=== PATIENT | male | born 1950 | race Caucasian/White ===

== ENCOUNTER → 2025-04-03 15:02 | Outpatient (REF) | payer OTHER, SELFPAY | LOC: MRI 3T 15:02 | PROVIDERS: ATTENDING PHYSICIAN Orthopaedic Surgery Hand Surgery; FAMILY PHYSICIAN Family Medicine | DX: M75.41 Impingement syndrome of right shoulder (principal) | CPT/HCPCS: 73221 ==

== ENCOUNTER 2025-04-29 21:25 | Observation (INO) | payer OTHER, SELFPAY ==
[2025-04-29 16:58] VITALS: BP 125/71
[2025-04-29 19:20] VITALS: BP 141/85
[2025-04-29 20:35] VITALS: BP 121/77
--- NOTE | 2025-04-29 20:48 | ED.GENMED ---
History of Present Illness
General
Chief Complaint: Fall
Source: patient and family
Exam Limitations: none
Time Seen by Provider: 04/29/25 17:11
History of Present Illness
History of Present Illness:
Note:
CHIEF COMPLAINT(S)
Right leg and elbow pain following a fall.
HISTORY OF PRESENT ILLNESS
The patient is a 74-year-old male who presents with pain in the right leg and elbow following a fall earlier today. The patient reports tripping and falling, landing on the leg and elbow. The fall was significant enough to cause pain through two
layers of clothing but did not lead to head impact. The patient describes the elbow pain as similar to a 'bad brush burn.' The patient took 'Re-out Re-I bill' for pain, although the exact medication is unclear, and the patient was advised against
taking it due to his current prescriptions. The patient noted that his existing rotator cuff injury from June 12 is not exacerbated by this fall. He denies any pain elsewhere, including the chest or other extremities. The patients tetanus
immunization is reportedly up to date, having been administered within the last couple of years.
PAST MEDICAL AND SURGICAL HISTORY
The patient has a history of atrial fibrillation for which he was previously hospitalized. He underwent cardioversion and was considered for ablation, but instead was treated with Dofetilide. He states the medication has been effective for at least
five years without recurrence.
MEDICATIONS
The patient is currently taking Apixaban (Eliquis) for atrial fibrillation. He also takes Dofetilide.
PHYSICAL EXAM
General: Alert, no acute distress.
Skin: Warm, dry.
Head: Normocephalic, atraumatic.
Neck: Supple, trachea midline.
Eye Ears, nose, mouth and throat: Oral mucosa moist.
Cardiovascular: Normal peripheral perfusion, no edema.
Respiratory: Respirations are non-labored.
Gastrointestinal: Abdomen nondistended.
Back: Normal range of motion, normal alignment.
Musculoskeletal: Normal range of motion, normal strength. Right elbow exhibits tenderness consistent with superficial abrasion-like injury.
Neurological: Alert and oriented to person, place, time, and situation, no focal neurological deficit observed.
Psychiatric: Cooperative, appropriate mood & affect.
PLAN
- Obtain an X-ray of the right leg to evaluate for any fractures.
- Provide local wound care for the right elbow abrasion.
- Discuss safer pain management options that do not interfere with current medications.
- Reassure the patient regarding the up-to-date status of his vaccinations.
DIFFERENTIAL DIAGNOSIS
The Differential Diagnosis includes, in no particular order and is not limited to:
1. Contusion
2. Abrasion
3. Fracture
4. Hemarthrosis
5. Ligamentous injury
6. Tendon injury
7. Osteoarthritis exacerbation
8. Deep vein thrombosis
9. Muscle strain
10. Soft tissue infection
Disposition:
SUMMARY OF ENCOUNTER
The patient is a 74-year-old male presenting with right hip pain after a fall. Initial x-rays were obtained and interpreted by both myself and the radiology department, revealing no fractures. Given the patients inability to ambulate and concerns
about his home environment consisting of multiple steps, a CT scan of the abdomen and pelvis was performed and also read as negative. Due to the patients living situation and the potential risk of further falls, the decision was made to admit the
patient for further evaluation and physical therapy consultation.
DISPOSITION
Admit
ASSESSMENT
The patient has sustained a fall causing right hip pain but with no radiographic evidence of fracture. Concerns about mobility in the context of his living situation necessitate further inpatient evaluation and management.
INDEPENDENT REVIEW OF LABS AND INTERPRETATION OF TESTS
- My independent interpretation of the right hip x-ray is negative for fractures.
- My independent interpretation of the CT scan of the abdomen and pelvis is negative for acute pathology.
MEDICAL DECISION MAKING
- Number and Complexity of Problems Addressed: Chronic conditions affecting care include a history of atrial fibrillation under current management, which needs to be considered in coordination with patient mobility and fall risk.
- Data:
- Category 1: X-rays and CT scan of the abdomen and pelvis were obtained and independently reviewed.
- Category 3: Consideration of Admission/Observation: Escalation of care, including admission/observation, was considered given the complexity and risk of the patients presenting complaint, exam findings, and/or underlying comorbidities. Ultimately,
I admitted the patient for further evaluation of his mobility and safety within his tri-level home environment, additionally reinforced by family concerns regarding potential fall risks.
DIAGNOSIS
- Pain in the right hip following a fall, with no fracture detected (ICD-10: M25.551)
- History of atrial fibrillation (ICD-10: I48.91)
Phy Exam
Physical Exam
Physical Exam:
.
Course
Orders/Labs/Results
Orders:
Orders
04/29/25 17:35
Lumbar Spine Complete, 4 View [CR Lumbar Spine Comp Min 4 Vw*] Urgent
Comment:
Reason For Exam: fall
04/29/25 17:36
CR Hip - RT w/wo Pel 2-3 Vw* Urgent
Comment:
Reason For Exam: fall, non ambulatory
Include a pelvis x-ray?: Yes
04/29/25 19:43
CT Abd/pelvis Wo Iv Cont Urgent
Comment:
Reason For Exam: r hip pain, minimally ambulatory
04/29/25 20:49
PT Consult [Pt Eval And Treat] Urgent
Activity Level: Out of Bed-Early Mobility
04/29/25 21:10
Admit/Transfer Patient As Directed
Co-Sign Provider:
Level of Care: Observation services
Assign to:: Medical/Surgical
Physician / Group: la nenay
Diagnosis: Rt Hi pain , acute gait dysfunction
04/29/25 21:11
Code Status As Directed
Resuscitation Status: Full Code
Vital Signs
Initial and Last Documented VS:
Initial Vital Signs
Temp Pulse Resp BP Pulse Ox
97.9 F 64 18 125/71 95
04/29/25 16:58 04/29/25 16:58 04/29/25 16:58 04/29/25 16:58 04/29/25 16:58
Last Documented Vital Signs
Temp Pulse Resp BP Pulse Ox
97.9 F 59 18 121/77 93
04/29/25 16:58 04/29/25 20:36 04/29/25 20:36 04/29/25 20:35 04/29/25 20:49
*Radiology
Radiology exam reviewed: radiology read reviewed and all reviewed NAD by ED Provider
*Pulse Oximetry
SaO2: 93
Oxygen Mode of Delivery: Room air
Patient hypoxic: no
*Critical Care Note
Total Time (30-74mins, 75-104mins- exclusive of procedures): Not Applicable
Update Note
Update Note:
EKG shows sinus rhythm rate of 66 with PACs present. No evidence of acute ischemia.
ED Attending Note
-
Portions of this chart may have been created with voice recognition software.� Occasional wrong word or��sound alike� substitutions may have occurred due to the inherent limitations of voice recognition software.
Discharge Plan
Departure
Patient Disposition: Admit
Date of Disposition: 04/29/25
Time of Disposition: 20:48
Admit to: Med/Surg
Presentation/result/management discussed w/ accepting MD/DO: Hospitalist
Condition: Good
Discharge Problem:
Acute hip injury
Interventions
Interventions:
*Risk Screen - Suicide Last Done: 04/29/25 17:01
*General Assessment Last Done: 04/29/25 17:01
*Neglect/Abuse Screening Last Done: 04/29/25 17:01
*ED COVID-19 Vaccine History Last Done: 04/29/25 17:01
*ED Influenza Vaccine History Last Done: 04/29/25 17:01
[facility] Risk Assessment Tool Last Done: 04/29/25 19:04
ED-Musculoskeletal Assessment Last Done: 04/29/25 17:13
ED- Neurological Assessment Last Done: 04/29/25 17:13
ED-Skin Assessment Last Done: 04/29/25 17:13
--- NOTE | 2025-04-29 20:53 | HPS.HSE ---
Family Physician
-
Family Physician: NOT KNOW UNKNOWN - PT DOES
Chief Complaint
-
pain in the right leg and elbow following a fall earlier today.
History of Present Illness
HPI
74M seen at ER
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
- tripping and falling, landing on the leg and elbow
- denied head strike
- elbow with bad brush burn.
- The patient took 'Re-out Re-I bill' for pain - the exact medication is unclear, and the patient was advised against taking it due to his current prescriptions.
- HX existing rotator cuff injury from June 12 is not exacerbated by this fall.
- Denies any pain elsewhere, including the chest or other extremities.
PMHX
DMT2
pHTN
HX Prx AF on Dofetilide & at least five years without recurrence.
HX CV
Medical History
Past Medical History
Past Medical History: Reports Arrhythmia (HX Prx AF on Dofetilide & at least five years without recurrence. HX CV ), HTN, NIDDM and Other
Past Surgical History: Reports Other
Social History
Tobacco: Non-smoker
Family History
Family History: Not pertinent
Allergies / Home Medications
Allergies reflects when Allergies were last updated in [employer].
Home Medications with original date entered in [employer]
Allergy/Medication List:
Allergies
Allergy/AdvReac Type Severity Reaction Status Date / Time
No Known Allergies Allergy Unverified 04/29/25 16:59
If medication reconciliation has not been performed, why?: Medication List N/A (Pending Rx reconciliation)
Review of Systems
-
Constitutional: Reports No Symptoms
EENT: Reports No Symptoms
Respiratory: Reports No Symptoms
Cardiac: Reports No Symptoms
Abdomen/GI: Reports No Symptoms
: Reports No Symptoms
Musculoskeletal: Reports See HPI
Skin: Reports No Symptoms
Neurological: Reports No Symptoms
Endocrine: Reports No Symptoms
Hematologic/Lymphatic: Reports No Symptoms
Psych: Reports No Symptoms
Physical Exam
Vital Signs
Vital Signs
Temp Pulse Resp BP Pulse Ox
97.9 F 59 18 141/85 93
04/29/25 16:58 04/29/25 20:36 04/29/25 20:36 04/29/25 19:20 04/29/25 20:49
Physical Exam
General: No Apparent Distress
HEENT: NormoCephalic, Atraumatic and Neck Nontender
Respiratory: Clear
Cardiac: S1/S2 and Regular Rhythm
GI: Soft, Non Tender and Non Distended
Genito-urinary: Deferred by me
Musculoskeletal: Other (Rt Hip - able to fully flexed and externa rotation without tenderness at Hip Joint )
Skin: Other (Right elbow: tenderness consistent with superficial abrasion-like injury.)
Neuro: AO x 3
Psych: Calm
Laboratory Results
-
pending
Data Reviewed
-
Diagnostic Radiology: Report Reviewed by me
CT Scan: Report Reviewed by me
Impression/Plan
-
Relevant Data
Pending Labs upon admission ( CBC, INR, CMP)
CR Lumbar Spine Comp Min 4 Vw*, CR Hip - RT w/wo Pel 2-3 Vw*
- Mild to moderate multilevel degenerative changes of the lumbar spine and right hip without evidence for acute fracture.
CT AP Wo Iv Cont
- No convincing acute process in the abdomen or pelvis.
- Intact right hip.
- Indeterminate 3.4 cm left hepatic lobe lesion.( Recommend outpatient workup with dedicated MRI abdomen without and with gadolinium contras)
- Small indeterminate upper pole left renal lesion.( Recommend attention on follow-up MRI)
No prior hospitalist admission:
ASSESSMENT & PLAN
Pending Rx reconciliation
R Hip pain suspect muscle contusion ? hematoma
s/p mechanical fall - denied head strike
Rt Hip - FROM
No evidence of acute Fx b y XR and CT
Associated with acute gait dysfunction
- PT/OT
- CRM evaluation
- Home with PT vs SNF
HX Prx AF on Dofetilide & at least five years without recurrence.
HX CV
Known HX
HX Prx AF: on ROOM WORKER Eliquis 5mg BID, Dofetilide
DMT2 : Hold Metformin due to contrast study, Jardiance is not on formula
pHTN: c/w ROOM WORKER Amlodipine 10mg daily, Losartan 50 or 100 mfg daily, Metoprolol 12.5 mg BID
- he missed evening Med - Thus NOW order placed for Metoprolol, Dofetilide, Eliquis
DVT PX : on chr Eliquis
Full Code:
OBS MS
[2025-04-29] MEDS: LOPRESSOR 12.5 MG PO (22:12)
[2025-04-29] MEDS: ELIQUIS 5 MG PO (22:12)
[2025-04-29] MEDS: TIKOSYN 250 MCG PO (22:15)
[2025-04-29 22:26] LABS: Hematocrit 48.6 % (39.0-52.0); Hemoglobin 16.6 g/dL (13.0-18.0); Mean Corp Hgb Conc. 34.2 g/dL (33.0-37.0); Mean Corpuscular Volume 93.1 fL (80.0-94.0); Platelet Count 169 10^3/uL (130-400); Red Cell Dist. Width 12.9 % (11.5-14.5)
[2025-04-29 22:37] LABS: INR 1.04; PT 13.7 Sec (11.4-14.6)
--- NOTE | 2025-04-29 22:45 | PTCARENOTE ---
pt arrived to 2S @ 2345 from ED. Pt ambulated to the bed with a one person assist. Pt A&Ox3, VSS. Admission assessment complete. Reviewed plan of care with patient, all questions answered. Pt oriented to room, call lafonso within reach, bed locked in
lowest position, care ongoing.
[2025-04-29 22:58] LABS: ALT (SGPT) 18 U/L (0-50); AST (SGOT) 24 U/L (17-59); Albumin 4.2 g/dl (3.5-5.0); Alkaline Phosphatase 120 U/L (38-126); Blood Urea Nitrogen 16 mg/dl (9-20); Calcium 9.4 mg/dl (8.4-10.2); Carbon Dioxide 19 mmol/L (22-30); Chloride 106 mmol/L (98-107); Glucose 120 mg/dl (70-99); Potassium 4.2 mmol/L (3.5-5.1); Sodium 135 mmol/L (135-145); Total Protein 7.0 g/dl (6.3-8.2); eGFR > 60.00
[2025-04-29] MEDS: COZAAR 50 MG PO (23:01)
[2025-04-29 23:05] VITALS: BP 150/81; BMI 28.6
[2025-04-29] MEDS: ROXICODONE 5 MG PO (23:53)
[2025-04-30] MEDS: ROXICODONE 5 MG PO ×2 (04:44→11:04)
[2025-04-30 06:54] LABS: Hematocrit 48.1 % (39.0-52.0); Hemoglobin 16.4 g/dL (13.0-18.0); Mean Corp Hgb Conc. 34.1 g/dL (33.0-37.0); Mean Corpuscular Volume 96.4 fL (80.0-94.0); Platelet Count 175 10^3/uL (130-400); Red Cell Dist. Width 13.0 % (11.5-14.5)
[2025-04-30 07:00] VITALS: BP 121/68
[2025-04-30 07:46] LABS: AST (SGOT) 23 U/L (17-59); Albumin 4.0 g/dl (3.5-5.0); Alkaline Phosphatase 113 U/L (38-126); Blood Urea Nitrogen 14 mg/dl (9-20); Calcium 9.1 mg/dl (8.4-10.2); Carbon Dioxide 26 mmol/L (22-30); Chloride 104 mmol/L (98-107); Estimated Creatinine Clearance 68 ml/min; Glucose 121 mg/dl (70-99); Potassium 4.1 mmol/L (3.5-5.1); Sodium 135 mmol/L (135-145); Total Protein 6.7 g/dl (6.3-8.2); eGFR > 60.00
[2025-04-30 07:49] LABS: ALT (SGPT) 16 U/L (0-50)
[2025-04-30 08:48] LABS: Glycohemoglobin (HgbA1c) 6.8 % (4.0-5.9)
[2025-04-30] MEDS: ELIQUIS 5 MG PO ×2 (08:54→19:52)
[2025-04-30] MEDS: NORVASC 10 MG PO (08:54)
[2025-04-30] MEDS: TIKOSYN 250 MCG PO ×2 (08:55→19:52)
[2025-04-30] MEDS: LOPRESSOR 12.5 MG PO ×2 (08:55→19:52)
[2025-04-30] MEDS: COZAAR 50 MG PO (08:55)
[2025-04-30 09:11] LABS: Glucose - Point of Care 131 mg/dl (70-99)
--- NOTE | 2025-04-30 09:59 | CM ---
Patient was admitted under observation, DOS SANTOS letter completed, signed and placed on chart. Patient states he lives with his spouse in a split level home, patient is independent with adl's and ambulation, no dme, patient drives, [facility]
[place] [facility] Per patient no surgical intervention, will await PT/OT for recommendations.
PCP: Dr. Hernandez Hernández
Pharmacy: [facility] [place]
Plan: Await PT/OT evaluations.
[2025-04-30 11:18] VITALS: BP 132/72
--- NOTE | 2025-04-30 11:30 | PTCARENOTE ---
Pt SpO2 86% on room air. No shortness of breath, denies chest pain. AIRLINE STEWARDESS made aware, order for oxygen obtained, ABG and bedside CXR ordered. Pt SpO2 sat 93% on 2L NC. Care ongoing.
[2025-04-30 12:14] LABS: Glucose - Point of Care 148 mg/dl (70-99)
--- NOTE | 2025-04-30 12:53 | W.PN.HOSP.TC ---
Today's Communication/Plan
-
see note
Assessment / Plan
Assessment / Plan
CR Lumbar Spine Comp Min 4 Vw*, CR Hip - RT w/wo Pel 2-3 Vw*
- Mild to moderate multilevel degenerative changes of the lumbar spine and right hip without evidence for acute fracture.
CT AP Wo Iv Cont
- No convincing acute process in the abdomen or pelvis.
- Intact right hip.
- Indeterminate 3.4 cm left hepatic lobe lesion.( Recommend outpatient workup with dedicated MRI abdomen without and with gadolinium contras)
- Small indeterminate upper pole left renal lesion.( Recommend attention on follow-up MRI)

1. Intractable right hip pain
Status post mechanical fall
- Imaging ruled out any acute structural issues as above
- Patient continues to have significant pain and likely from blunt trauma to pelvic bone
- Increase pain medication to oxycodone with IV Dilaudid for breakthrough
- Patient able to work with physical therapy but dragging right foot and not able to put any weight on the leg
- Patient would benefit with overnight monitoring with need of oral and potentially IV pain medication with repeat evaluation with physical therapist in the morning tomorrow
2. Paroxysmal atrial fibrillation
-Maintain on home dose of Tikosyn/Eliquis
-QTc and renal function wnl. continue monitoring.
3. Essential hypertension
- maintain on norvasc/losartan/toprol xl
4. Type II DM
- Maintain on oral metformin.
- Hbga1c of 6.8
- continue ISS while in hospital
DVT PX : on chr Eliquis
Full Code:
Anticipated Discharge: Within 24 hours
Subjective/Interval History
-
Date of Service: April 30, 2025
Continues to have significant pain in the right hip
no other reported issues
Objective Data
-
Labs:
Laboratory Results
04/30/25
06:31
WBC 8.1
Hgb 16.4
Hct 48.1
Plt Count 175
Sodium 135
Potassium 4.1
Chloride 104
Carbon Dioxide 26
BUN 14
Creatinine 1.0
Glucose 121 H
Calcium 9.1
Total Bilirubin 1.0
AST 23
ALT 16
Alkaline Phosphatase 113
Vital Signs:
Vital Signs
Temp Pulse Resp BP Pulse Ox
99.2 F 70 16 132/72 93
04/30/25 11:18 04/30/25 11:18 04/30/25 11:18 04/30/25 11:18 04/30/25 11:18
I&O
04/29/25 04/30/25 05/01/25
06:59 06:59 06:59
Intake Total 480 / 480
Output Total 500 / 500
Balance -20 / -20
Review of Systems
-
Respiratory: Reports No Symptoms
Cardiac: Reports No Symptoms
Abdomen/GI: Reports No Symptoms
Physical Exam
-
General: Pain
HEENT: Negative Oxygen
Musculoskeletal: No Edema; Negative Edema, Right Lower Extrem or Normal Gait & Station
Neuro: Awake, Alert and Oriented
[2025-04-30 15:00] VITALS: BP 131/74
[2025-04-30 17:24] LABS: Glucose - Point of Care 131 mg/dl (70-99)
[2025-04-30 19:00] VITALS: BP 130/70
--- NOTE | 2025-04-30 19:44 | W.PN.UPDATE ---
Addendum entered and electronically signed by VICKI Rice 04/30/25 23:36:
around 11:30pm the patient is desating to 86% on RA. Patient placed on 2L of o2. Will order chest x-ray and abg.
-normal WBC and lactic acid is 1.4
-Neg UA
-Blood cultures result is pending.
Original Note:
Update Note
Progress Note Update
-New onset of fever, temp is 101.6, bp 130/70 hr 86, RR 18.
-CBC, lactic acid, Blood cultures, covid and flu ordered.
-Urinalysis sent and result is pending.
[2025-04-30] MEDS: ROXICODONE 10 MG PO (19:52)
[2025-04-30 20:55] LABS: COVID-19 Antigen Negative (Negative)
[2025-04-30 21:04] LABS: Hematocrit 47.8 % (39.0-52.0); Hemoglobin 16.5 g/dL (13.0-18.0); Mean Corp Hgb Conc. 34.5 g/dL (33.0-37.0); Mean Corpuscular Volume 93.4 fL (80.0-94.0); Platelet Count 163 10^3/uL (130-400); Red Cell Dist. Width 13.0 % (11.5-14.5)
[2025-04-30 21:24] LABS: Urine Character Clear (Clear)
[2025-04-30 21:41] LABS: Glucose - Point of Care 148 mg/dl (70-99)
[2025-04-30 21:44] LABS: Urine Squamous Cell 0-2 /LPF (Few); Urine White Cell 0-2 /HPF (0-5)
[2025-04-30 23:10] VITALS: BP 125/70
[2025-05-01 00:11] LABS: B.E. 1.6 mmol/L; HCO3 25.9 mmol/L (21-28); O2 Saturation % 90.0 % (94-98); PCO2 39 mmHg (35-48)
[2025-05-01 00:16] LABS: PO2 58 mmHg (83-108)
[2025-05-01 03:09] VITALS: BP 153/85
[2025-05-01] MEDS: ROXICODONE 5 MG PO ×2 (05:30→15:04)
[2025-05-01 07:15] LABS: Glucose - Point of Care 133 mg/dl (70-99)
[2025-05-01 08:00] VITALS: BP 104/73
--- NOTE | 2025-05-01 08:02 | CM ---
Chart reviewed insurance case manager met with patient this am and plan is for home with visiting nurses, options reviewed with patient and patient has selected [facility].
Plan; Home with [facility].
[2025-05-01] MEDS: COZAAR 50 MG PO (08:39)
[2025-05-01] MEDS: LOPRESSOR 12.5 MG PO (08:39)
[2025-05-01] MEDS: ELIQUIS 5 MG PO (08:39)
[2025-05-01] MEDS: TIKOSYN 250 MCG PO (08:40)
[2025-05-01] MEDS: NORVASC PO (08:42)
--- NOTE | 2025-05-01 10:52 | VNURNOTE ---
Home Health Liaison met with patient and pt's sister at bedside to discuss [facility] nurse/therapy, visits, schedule and homebound status. Patient is agreeable and understands that visits at home will be 2-3 x per week to assess and teach medical
management. Patient is aware that [facility] will contact them for start of care within a week after discharge from . Provided contact number for [facility].
[facility] referral completed in [facility].
[2025-05-01 11:05] VITALS: BP 110/61
[2025-05-01] MEDS: TYLENOL 650 MG PO ×2 (11:10→15:33)
[2025-05-01 12:08] LABS: Glucose - Point of Care 146 mg/dl (70-99)
[2025-05-01 15:04] VITALS: BP 129/69; PULSE 75; O2SAT 94
--- NOTE | 2025-05-01 15:12 | W.DCSUMMARY ---
Discharge Summary
Discharge Data
Date of Admission: 04/29/25
Date of Discharge: 05/01/25
-
Pending Results: No
Hospital Course
Discharging Physician : Dr Mark Flannery
Disposition : Home
Primary care physician : Unknown
Principal Discharge diagnosis :
Mechanical fall
Right hip pain
Fever of unexplained vision
Hepatic lesion
Renal cyst/lesion
Chronic Discharge diagnosis :
Paroxysmal atrial fibrillation
Essential hypertension
Type 2 diabetes mellitus
Physical examination:
GEN: aox3
HEENT: moist mucus membrane, PERRLA/EOMI, no thryomegaly or LNpathy
Chest: Clear to auscultation
Heart: N s1/s2, RRR, no rub/mrumur/gallops
Abd: N BS, soft, nontender, nondistended, no organomegaly
Neuro: No motor or sensory deficits, bilateral symetric DTR
Ext: No cyanosis, Clubbing, edema
Hospital Course :
Patient is a 74-year-old male with admission past medical history came to ER after having a mechanical fall at home causing excessive right lower extremity pain and ambulatory dysfunction. Patient denied of having any head trauma. In ER patient
had CT abdomen pelvis and chest x-ray which ruled out any occult fractures. No other acute structural issues were noted except incidental finding of hepatic lesion/renal cyst. Patient was admitted for further pain control. Patient required high
dose of pain medication and had slow recovery. Patient was able to be discharged at home level care
Patient recommended to have follow-up with primary care physician in 1 week for further workup of incidental finding of hepatic/renal lesions.
Important imaging findings :
None
Procedure findings :
None
Discharge Plan
-
Patient Disposition: Home with Home Care
Discharge Diagnosis/Procedures: Right hip pain post mechanical fall, Ambulatory dysfunction
Condition: Fair
Diet: Regular
Activity: As tolerated
Driving Restrictions: No driving for 24 hours
Bathing Restrictions: OK to Shower
Other Services: PT
Referrals:
UNKNOWN - PT DOES,NOT KNOW [Family Provider]
Additional Discharge Medication Instructions: Lowering dose of losartan to 50 mg daily due to low blood pressure
Prescriptions:
New
oxycodone 10 mg tablet
10 mg PO Q8H PRN (Reason: sev pain) Qty: 14 0RF
Rx Instructions:
Take half tablet for moderate pain
Continued
atorvastatin 10 mg Tablet
10 mg PO DAILY
dofetilide 250 mcg Capsule
250 mcg PO BID
amlodipine 10 mg Tablet
10 mg PO DAILY
metoprolol succinate 25 mg Tablet Extended Release 24 Hr
12.5 mg PO BID
metformin 750 mg Tablet Extended Release 24 Hr
750 mg PO BID
apixaban 5 mg Tablet
5 mg PO BID
empagliflozin 25 mg Tablet
25 mg PO DAILY
Changed
losartan 100 mg Tablet
50 mg PO DAILY Qty: 0 0RF
Discharge Orders:
Discharge Patient (As Directed); Ordered 05/01/25
Ordered By: Mark Flannery
Discharge Date and Time
Discharge Date/Time: 05/01/25 16:00
Print Language: MOHAWK
[2025-05-01 15:31] VITALS: BP 120/60
== END 2025-05-01 16:00 | disposition home health service (06) ==
LOC: 2 SOUTH 21:25
PROVIDERS: Nurse Practitioner Family; ADMITTING PHYSICIAN Internal Medicine; ATTENDING PHYSICIAN Hospitalist; EMERGENCY PHYSICIAN Student in an Organized Health Care Education/Training Program
DX: M25.551 Pain in right hip (principal); W01.0XXA Fall on same level from slipping, tripping and stumbling without subsequent striking against object, initial encounter; I48.0 Paroxysmal atrial fibrillation; M47.816 Spondylosis without myelopathy or radiculopathy, lumbar region; I10 Essential (primary) hypertension; E11.9 Type 2 diabetes mellitus without complications; I27.20 Pulmonary hypertension, unspecified; J98.11 Atelectasis; S50.311A Abrasion of right elbow, initial encounter; Z79.01 Long term (current) use of anticoagulants; Z79.899 Other long term (current) drug therapy; R50.9 Fever, unspecified
CPT/HCPCS: 36600; 71045; 72110; 73502; 74176; 80053; 81003; 81015; 82805; 82962; 83036; 83605; 85027; 85610; 87040; 87502; 87811; 93005; 97116; 97162; 97166; 99285; G0378